=== PATIENT | female | born 2000 ===

== ENCOUNTER 2018-12-20 10:43 | Day surgery (SDC) | payer BC ==
--- NOTE | 2018-12-19 20:07 | HP ---
PREOPERATIVE HISTORY AND PHYSICAL: DATE OF ADMISSION/SURGERY: 12/20/18 [facility] DATE OF OFFICE VISIT/ENCOUNTER: 12/19/18 ATTENDING SURGEON: Roxane Gonzalez MD.* (DICTATED BY HARRIS PRIETO) PROCEDURE: Open reduction and internal fixation, right fifth metacarpal. CHIEF COMPLAINT: Right fifth metacarpal fracture. HISTORY OF PRESENT ILLNESS: This is a 17-year-old female, [employer] student, who injured her right hand approximately two weeks ago. She was riding a horse and fell off and hit her right hand on a concrete wall. She was seen initially at [facility] and had some x-rays of the hand which showed a fifth metacarpal fracture. She was referred to Dr. Gonzalez for further evaluation and treatment considerations. She denies any associated numbness or tingling. This is her dominant hand. After evaluation by Dr. Gonzalez and review of x-rays, it has been recommended that she undergo surgical intervention for best outcome. The patient has consented to proceed. PAST MEDICAL HISTORY: Anxiety/depression. PAST SURGICAL HISTORY: [place] teeth extraction. CURRENT MEDICATIONS: 1. Fluoxetine HCl 10 mg daily. 2. Norethindrone 0.35 mg daily. ALLERGIES: No known drug allergies. FAMILY MEDICAL HISTORY: Stroke and cancer. SOCIAL HISTORY: The patient is a sophomore at [employer], studying Anthropology. She denies tobacco use and recreational drug use. She drinks alcohol on occasion. REVIEW OF SYSTEMS: Negative for general, cephalic, cardiovascular, respiratory , GI, , other musculoskeletal, integumentary, endocrine, neurologic, and hematologic symptoms. Infectious disease is negative for MRSA, hepatitis C, HIV. PHYSICAL EXAMINATION GENERAL: A well-developed, well-nourished, 17-year-old female, in no acute distress. VITAL SIGNS: Height 5 feet 6 inches, weight 135 pounds. Pulse rate 60, blood pressure 98/66. HEENT: Normocephalic, atraumatic. Pupils are equal, round, and reactive to light and accommodation. Throat is clear. NECK: Supple. No palpable lymph nodes. PULMONARY: Lungs are clear to auscultation bilaterally. No wheezes, rales, or rhonchi. CARDIOVASCULAR: Regular rate and rhythm. S1, S2. No murmurs, rubs, or gallops. No edema. ABDOMEN: Positive bowel sounds, soft, nontender. NEUROLOGICAL: Alert and oriented x3. Cranial nerves II through XII are intact. Sensation is intact to light touch. MUSCULOSKELETAL: On exam of the right hand, she had significant swelling and ecchymosis. When she presses her little finger, it underlaps her ring finger. She has good extension in the pinkie finger. Neurovascular function is intact. SKIN: Intact. IMAGING STUDIES: X-rays, AP, lateral and oblique of the right hand shows a long oblique fracture of the fifth metacarpal with some angular deformity. IMPRESSION: Right fifth metacarpal fracture. PLAN: The patient is scheduled to undergo open reduction and internal fixation of the right fifth metacarpal with Dr. Gonzalez on 12/20/18. She will return to the office 10 days' postop for followup and suture removal. A prescription for Tylenol No. 3 was e-scribed to the patient's pharmacy for postoperative pain management. HARRIS PRIETO [id number]/[facility] #: [id number] MTDD
[~2018-12-20 10:43] MED LIST: Buffered Lidocaine 1% SYRIN* 1 ML/SYRINGE INTRADERM ONE; Lactated Ringers 1000 ML Bag* 1,000 ML IV SCH
[2018-12-20] MEDS ORDERED: ceFAZolin 2 GM PREMIX in ORs 2 GM/50 ML BAG IVPB ONE (11:43)
[2018-12-20] MEDS ORDERED: Midazolam* 1 MG/ML 2 ML VIAL (2 MG) ONE (12:47)
[2018-12-20] MEDS ORDERED: fentaNYL* 50 MCG/ML 2 ML VIAL (100 MCG VIAL) ONE (12:47)
[2018-12-20] MEDS ORDERED: Famotidine IV* 10 MG/ML 2 ML (20 mg) IV ONE (13:19)
[2018-12-20] MEDS ORDERED: Dexamethasone IV* 4 MG/ML 1 ML (4 MG) IV SLOW PU ONE (13:19)
[2018-12-20] MEDS ORDERED: Dexamethasone IV* 4 MG/ML 1 ML (4 MG) ONE (13:21)
[2018-12-20] MEDS ORDERED: Famotidine IV* 10 MG/ML 2 ML (20 mg) ONE (13:21)
[2018-12-20] MEDS ORDERED: Propofol* 10 MG/ML 20 ML BTL ONE (13:23)
[2018-12-20] MEDS ORDERED: Lidocaine 2% PF * 5 ML VIAL ONE (14:01)
[2018-12-20] MEDS ORDERED: Glycopyrrolate IV* 0.2 MG/ML 1 ML VIAL ONE (14:01)
[2018-12-20] MEDS ORDERED: EPHEDrine (Pressors)* 50 MG/ML VIAL ONE (14:01)
[2018-12-20] MEDS ORDERED: Ketorolac INJ* 30 MG/ML 1 ML VIAL ONE (14:01)
[2018-12-20] MEDS ORDERED: Ondansetron INJ* 2 MG/ML VIAL ONE (14:01)
[2018-12-20] MEDS ORDERED: HYDROmorphone INJ1* 1 MG/ML SYRINGE IV PRN (14:39)
[2018-12-20] MEDS ORDERED: Naloxone* 0.4 MG/ML 1 ML VIAL IV PRN (14:39)
[2018-12-20] MEDS ORDERED: fentaNYL* 50 MCG/ML 2 ML VIAL (100 MCG VIAL) IV PRN (14:39)
[2018-12-20] MEDS ORDERED: Scopolamine 1.5 mg* PATCH TRANSDERM PRN (14:39)
[2018-12-20] MEDS ORDERED: DiMENhydriNATE IV* 50 MG/ML VIAL IV PUSH PRN (14:39)
[2018-12-20 15:57] VITALS: BP 111/68
--- NOTE | 2018-12-20 21:24 | OP ---
DATE OF OPERATION: 12/20/18 [facility] DATE OF : 89. SURGEON: Roxane Gonzalez MD. WASTE WATER WORKER: HARRIS Flores. ANESTHESIA: General. PRE-OP DIAGNOSIS: Right fifth metacarpal fracture, displaced. POST-OP DIAGNOSIS: Right fifth metacarpal fracture, displaced. OPERATIVE PROCEDURE: Open reduction, internal fixation right fifth metacarpal fracture. ESTIMATED BLOOD LOSS: Zero. TOURNIQUET TIME: Approximately 25 minutes. INDICATION FOR PROCEDURE: Tatyana is a 17-year-old female who injured her right hand when she fell off her horse. She suffered a fracture of her right fifth metacarpal. She has a rotational deformity with flexion and presents for ORIF of the right fifth metacarpal. DESCRIPTION OF PROCEDURE: The patient was brought to the operating room, was given a general anesthetic and placed in the supine position on the operating table with a tourniquet around her right forearm. The skin of her right hand and forearm was prepped and draped in the usual sterile fashion. The hand and forearm were exsanguinated and the tourniquet elevated to 250 mmHg. A longitudinal incision was made along the dorsal ulnar border of the fifth metacarpal, dissected through the subcutaneous tissue bluntly. Branch of the ulnar sensory nerve was located and retracted by the surgical technician, Viviana Scott. The little finger extensor tendon was retracted as well. The periosteum of the fifth metacarpal was incised longitudinally, and then the fracture fragments were reduced and secured with two 1.5 mm screws, one was 9 mm and one was 10 mm. The position of the hardware and fracture fragments were checked on the C-arm in the AP and lateral views and found to be anatomic. The wound was copiously irrigated with saline. The periosteum was repaired over the fracture and the screws with 3-0 Vicryl suture. The skin edges were then reapproximated with 4-0 nylon suture. The wound was dressed with Xeroform, 4x4 , Webril and an Kevin wrap. The patient tolerated the procedure well and was brought to the recovery room in good condition. [id number]/[facility] #: [id number] [facility]
== END 2018-12-20 15:00 | disposition home or self-care (01) ==
LOC: OREAST 10:43
PROVIDERS: ATTEND Orthopaedic Surgery
DX: S62.326A Displaced fracture of shaft of fifth metacarpal bone, right hand, initial encounter for closed fracture (principal); V80.010A Animal-rider injured by fall from or being thrown from horse in noncollision accident, initial encounter; Y93.52 Activity, horseback riding; Y92.89 Other specified places as the place of occurrence of the external cause; F41.8 Other specified anxiety disorders
CPT/HCPCS: 76000; 81025; C1713; J0690; J1100; J1885; J2250; J2405; J2704; J3010